=== PATIENT | male | born 2000 | race Caucasian/White ===

== ENCOUNTER 2021-02-11 13:22 | Day surgery (SDC) | payer SELFPAY ==
[~2021-02-11] VITALS: Ht 185 cm; Wt 65.7 kg
[2021-02-11] VITALS (9 sets, daily range): BP systolic 117–132; BP diastolic 54–77
[2021-02-11 13:44] LABS: CLARITY,URINE CLEAR; COLOR,URINE YELLOW; PH,URINE 6.5 (5-9)
[2021-02-11 13:45] LABS: BACTERIA,URINE NEGATIVE /HPF; BILIRUBIN,URINE NEGATIVE (NEGATIVE); GLUCOSE, URINE (UA) NEGATIVE (NEGATIVE); KETONES,URINE TRACE (NEGATIVE); LEUKOCYTE ESTERASE ,URINE NEGATIVE (NEGATIVE); NITRITE,URINE NEGATIVE (NEGATIVE); PROTEIN,URINE NEGATIVE (NEGATIVE); WBC,URINE 0-2 /HPF
--- NOTE | 2021-02-11 13:50 | ED Abdominal Pain ---
General Chief Complaint: Abdominal/GI Problems Stated Complaint: LRQ PAIN; NAUSEA; DIARRHEA; FEVER Source of Information: Patient Exam Limitations: No Limitations History of Present Illness Date Seen by Provider: Feb 11, 2021 Time Seen by Provider: 13:35 Initial Comments Patient presents ER by private conveyance from home with his significant other and chief complaint that around 9:00 this morning he started having some severe pain radiating from his mid umbilicus to his right lower quadrant abdomen. He did have 1 episode of diarrhea this morning that was nonbloody. No fevers or chills. He said some nausea and gets a little dizzy when he stands up but no vomiting. No history of abdominal surgeries or trauma. No one else around him is sick. He has had no cough shortness of air or fever. He did not take anything for the symptoms. No significant family medical history. He denies dysuria or discharge. Allergies and Home Medications Allergies Coded Allergies: No Known Drug Allergies (Unverified , 02/11/21) Patient Home Medication List Home Medication List Reviewed: Yes Review of Systems Review of Systems Constitutional: No chills, No diaphoresis; dizziness; No fever, No malaise EENTM: No Blurred Vision, No Double Vision Respiratory: Denies Cough, Denies Shortness of Air Cardiovascular: Denies Chest Pain, Denies Lightheadedness Gastrointestinal: See HPI, Abdominal Pain; Denies Constipated, Denies Diarrhea; Nausea, Poor Fluid Intake; Denies Vomiting Genitourinary: Denies Burning, Denies Discharge Musculoskeletal: No back pain, No joint pain All Other Systems Reviewed Negative Unless Noted: Yes Past Hhzsboy-Sznpjc-Rwofki Hx Patient Social History Alcohol Use: Denies Use Smoking Status: Current Everyday Smoker Type Used: Electronic/Vapor 2nd Hand Smoke Exposure: No Recent Hopitalizations: No Seasonal Allergies Seasonal Allergies: No Past Medical History Surgeries: No Respiratory: No Cardiac: No Neurological: No Genitourinary: No Gastrointestinal: No Musculoskeletal: No Endocrine: No HEENT: No Cancer: No Psychosocial: No Integumentary: No Blood Disorders: No Physical Exam Vital Signs Vital Signs - First Documented 02/11/21 13:53 Temp 36.9 Pulse 64 Resp 18 B/P (MAP) 122/74 (90) Pulse Ox 100 Capillary Refill : Height/Weight/BMI Height: '" Weight: lbs. oz. kg; BMI Method: General Appearance: WD/WN, mild distress HEENT: PERRL/EOMI, pharynx normal Neck: full range of motion, normal inspection Respiratory: lungs clear, normal breath sounds, no respiratory distress, no accessory muscle use Cardiovascular: normal peripheral pulses, regular rate, rhythm Peripheral Pulses: 2+ Radial Pulses (R), 2+ Radial Pulses (L) Gastrointestinal: normal bowel sounds, guarding (Right lower quadrant); No rebound; tenderness (Right lower quadrant tenderness with Rovsing sign and psoas sign negative for heeltap tenderness.) Extremities: normal range of motion, normal capillary refill Neurologic/Psychiatric: alert, normal mood/affect, oriented x 3 Progress/Results/Core Measures Results/Orders Lab Results Laboratory Tests Test 02/11/21 13:36 02/11/21 13:59 Range/Units Urine Color YELLOW Urine Clarity CLEAR Urine pH 6.5 5-9 Urine Specific Ivor 1.020 1.016-1.022 Urine Protein NEGATIVE NEGATIVE Urine Glucose (UA) NEGATIVE NEGATIVE Urine Ketones TRACE H NEGATIVE Urine Nitrite NEGATIVE NEGATIVE Urine Bilirubin NEGATIVE NEGATIVE Urine Urobilinogen 0.2 < = 1.0 MG/DL Urine Leukocyte Esterase NEGATIVE NEGATIVE Urine RBC (Auto) NEGATIVE NEGATIVE Urine RBC NONE /HPF Urine WBC 0-2 /HPF Urine Squamous Epithelial Cells NONE /HPF Urine Crystals NONE /LPF Urine Bacteria NEGATIVE /HPF Urine Casts NONE /LPF Urine White Blood Cell Casts /LPF Urine Mucus NEGATIVE /LPF Urine Culture Indicated NO White Blood Count 15.6 H 4.3-11.0 10^3/uL Red Blood Count 5.38 4.35-5.85 10^6/uL Hemoglobin 16.6 13.3-17.7 G/DL Hematocrit 47 40-54 % Mean Corpuscular Volume 87 80-99 FL Mean Corpuscular Hemoglobin 31 25-34 PG Mean Corpuscular Hemoglobin Concent 36 32-36 G/DL Red Cell Distribution Width 11.4 10.0-14.5 % Platelet Count 278 130-400 10^3/uL Mean Platelet Volume 10.6 H 7.4-10.4 FL Immature Granulocyte % (Auto) 0 % Neutrophils (%) (Auto) 82 H 42-75 % Lymphocytes (%) (Auto) 10 L 12-44 % Monocytes (%) (Auto) 7 0-12 % Eosinophils (%) (Auto) 0 0-10 % Basophils (%) (Auto) 0 0-10 % Neutrophils # (Auto) 12.8 H 1.8-7.8 X 10^3 Lymphocytes # (Auto) 1.5 1.0-4.0 X 10^3 Monocytes # (Auto) 1.1 H 0.0-1.0 X 10^3 Eosinophils # (Auto) 0.1 0.0-0.3 10^3/uL Basophils # (Auto) 0.0 0.0-0.1 10^3/uL Immature Granulocyte # (Auto) 0.1 0.0-0.1 10^3/uL Neutrophils % (Manual) 81 % Lymphocytes % (Manual) 10 % Monocytes % (Manual) 4 % Eosinophils % (Manual) 2 % Basophils % (Manual) 0 % Band Neutrophils 3 % Sodium Level 140 135-145 MMOL/L Potassium Level 3.6 3.6-5.0 MMOL/L Chloride Level 103 98-107 MMOL/L Carbon Dioxide Level 23 21-32 MMOL/L Anion Gap 14 5-14 MMOL/L Blood Urea Nitrogen 16 7-18 MG/DL Creatinine 1.12 0.60-1.30 MG/DL Estimat Glomerular Filtration Rate > 60 BUN/Creatinine Ratio 14 Glucose Level 102 70-105 MG/DL Calcium Level 9.9 8.5-10.1 MG/DL Corrected Calcium 8.5-10.1 MG/DL Total Bilirubin 0.6 0.1-1.0 MG/DL Aspartate Amino Transf (AST/SGOT) 22 5-34 U/L Alanine Aminotransferase (ALT/SGPT) 14 0-55 U/L Alkaline Phosphatase 70 40-136 U/L C-Reactive Protein 0.10 <0.50 MG/DL Total Protein 8.2 6.4-8.2 GM/DL Albumin 5.2 H 3.2-4.5 GM/DL My Orders Orders - KRZYSZTOF LEON Ua Culture If Indicated (02/11/21 13:25) Ct Abd/Pelv W (Appendicitis) (02/11/21 13:46) Ed Iv/Invasive Line Start (02/11/21 13:46) Lactated Ringers (Lr 1000 Ml Iv Solution (02/11/21 14:00) Cbc With Automated Diff (02/11/21 13:46) Comprehensive Metabolic Panel (02/11/21 13:46) Crp Fs (02/11/21 13:46) Fentanyl Inj (Sublimaze Injection) (02/11/21 14:00) Iohexol Injection (Omnipaque 350 Mg/Ml 1 (02/11/21 14:00) Received Contrast (Hold Metformin- Contr (02/11/21 14:00) Sodium Chloride Flush (Catheter Flush Sy (02/11/21 14:00) Ns (Ivpb) (Sodium Chloride 0.9% Ivpb Bag (02/11/21 14:00) Manual Differential (02/11/21 13:59) Piperacillin Sodium/Tazobactam (Zosyn Vi (02/11/21 15:00) Medications Given in ED Current Medications Medications Dose Ordered Sig/Teddy Route Start Time Stop Time Status Last Admin Dose Admin Fentanyl Citrate 50 mcg ONCE ONCE IVP 02/11/21 14:00 02/11/21 14:01 DC 02/11/21 14:13 50 MCG Iohexol 100 ml ONCE ONCE IV 02/11/21 14:00 02/11/21 14:01 DC 02/11/21 14:15 100 ML Lactated Ringer's 1,000 ml @ 0 mls/hr Q0M ONCE IV 02/11/21 14:00 02/11/21 14:01 DC 02/11/21 14:13 1,000 MLS/HR Sodium Chloride 10 ml NEEDED PRN IV 02/11/21 14:00 02/11/21 14:15 10 ML Sodium Chloride 100 ml ONCE ONCE IV 02/11/21 14:00 02/11/21 14:01 DC 02/11/21 14:15 100 ML Vital Signs/I&O 02/11/21 13:53 Temp 36.9 Pulse 64 Resp 18 B/P (MAP) 122/74 (90) Pulse Ox 100 Progress Progress Note #1: Time: 13:50 Progress Note Concerning coalescence of symptoms around his right lower quadrant abdomen with nausea but no fever. Does not appear to be related to a hernia by history or exam. Plan to get a CT of his abdomen pelvis and give him a liter of lactated Ringer's, 50 mcg of fentanyl and check lab. Progress Note #2: Time: 15:03 Progress Note Patient is significantly more comfortable than when he arrived. He is still has a septic vital signs and has had no material deterioration during his stay. We have discussed and he has good transportation would like to go POV. We are going to support him with 50 mcg of fentanyl, 4-1/2 g of Zosyn IV. He has finished his fluids. He reiterated that he has not had anything but some strawberries to eat around 9:00 this morning. Diagnostic Imaging Diagonstic Imaging: CT (With IV contrast) Plain Films/CT/US/NM/MRI: abdomen, pelvis Comments [facility]. [place], [place] NAME: IRINA CELAYA [facility] REC#: [id number] PT STATUS: REG ER : 2000 PHYSICIAN: KRZYSZTOF LEON MD ADMIT DATE: 02/11/21/ER FS Draft Date of Exam:02/11/21 CT ABD/PELV W (APPENDICITIS) PROCEDURE: CT abdomen and pelvis with contrast, rule out appendicitis. TECHNIQUE: Multiple contiguous axial images were obtained through the abdomen and pelvis after the administration of intravenous contrast. All CT scans use one or more of the following dose optimizing techniques: automated exposure control, MA and/or KvP adjustment based on patient size and exam type or iterative reconstruction. INDICATION: Epigastric pain. COMPARISON: There are no prior studies available for comparison. FINDINGS: There is clinical concern regarding appendicitis. The appendix was visualized and the appendix does seem to be at the upper limits of normal in size measuring 8.2 mm (normal 8 mm or less). There is also slight distortion of the periappendiceal fat and I am concerned that these findings may be related to early appendicitis. A surgical consult would be recommended. There is no acute abnormality of the abdomen or pelvis noted otherwise. There is a fair amount of fluid within the small bowel. This finding is nonspecific but could be related to a mild ileus. There is also small amount of free fluid in the pelvis. The urinary bladder and prostate gland are grossly unremarkable. The spleen is prominent measuring 12.4 cm in length. The liver, pancreas, adrenals, kidneys, gallbladder, aorta and inferior vena cava and portal vein are unremarkable for an acute abnormality. The stomach is partially filled with fluid and consequently difficult to assess. The lung bases are clear. The bone windows are unremarkable for fracture or for destructive lesion. IMPRESSION: 1. The findings are worrisome for early appendicitis. A surgical consult would be recommended. 2. The fluid in the small bowel and a small amount of free fluid along the pelvis is nonspecific. This could be related to a mild ileus perhaps secondary to enteritis or possibly related to the suspected appendicitis. 3. These results were discussed with Dr. Krzysztof Leon at the time of this dictation. CRITICAL FINDING. Dictated on workstation # [id number] Dict: 02/11/21 1429 Trans: 02/11/21 1441 [facility] [id number] Interpreted by: GREER MIRELES MD Electronically signed by: Reviewed: Reviewed by Me Departure Impression Primary Impression: Appendicitis Qualified Codes: K35.30 - Acute appendicitis with localized peritonitis, without perforation or gangrene Disposition: HOME, SELF-CARE Condition: Stable Transfer Transfer Reason: Exceeds level of care (No local OR) Time Spoke to Accepting Phy: 14:55 Transfer Progress Notes 1445: Discussed the case with Dr. Galvez, general surgery and he would like the patient transferred ER to ER to the [facility] in [place] so he can take him straight to the OR. They are 6 hours n.p.o. at this time. 1455: Discussed the case with Renny Calderón, [facility] and he agrees to accept the patient to the emergency room with plan to turn over to Dr. Galvez to take to the OR. Transfer Facility: [facility] Method of Transfer: Private Vehicle (christine S.O.) Departure-Patient Inst. Referrals: NO,LOCAL PHYSICIAN (PCP/Family) Primary Care Physician KRZYSZTOF LEON Feb 11, 2021 13:50
[2021-02-11] MEDS ORDERED: fentaNYL INJ 100 MCG/2 ML AMP IVP ONE ×2 (14:00→15:15)
[2021-02-11] MEDS ORDERED: LACTATED RINGERS 1,000 ML IV ONE (14:00)
[2021-02-11] MEDS ORDERED: NS 100 ML (IVPB) BAG IV ONE (14:00)
[2021-02-11] MEDS ORDERED: HOLD METFORMIN - RECEIVED CONTRAST 20 ML VIAL IV SCH (14:00)
[2021-02-11] MEDS ORDERED: CATHETER FLUSH 10 ML SYR IV PRN (14:00)
[2021-02-11] MEDS ORDERED: IOHEXOL 350 MG/ML 100 ML (OMNIPAQUE 350) VIAL IV ONE (14:00)
[2021-02-11 14:18] LABS: HEMATOCRIT 47 % (40-54); HEMOGLOBIN 16.6 G/DL (13.3-17.7); MEAN CORPUSCULAR HEMOGLOBIN 31 PG (25-34); MEAN CORPUSCULAR VOLUME 87 FL (80-99); WHITE BLOOD COUNT 15.6 10^3/uL (4.3-11.0)
[2021-02-11 14:19] LABS: BASOPHILS % (AUTO) 0 % (0-10); EOSINOPHILS # (AUTO) 0.1 10^3/uL (0.0-0.3); EOSINOPHILS % (AUTO) 0 % (0-10); LYMPHOCYTES # (AUTO) 1.5 X 10^3 (1.0-4.0); LYMPHOCYTES % (AUTO) 10 % (12-44); MEAN CORPUSCULAR HGB CONC 36 G/DL (32-36); MEAN PLATELET VOLUME 10.6 FL (7.4-10.4); MONOCYTES # (AUTO) 1.1 X 10^3 (0.0-1.0); MONOCYTES % (AUTO) 7 % (0-12); NEUTROPHILS # (AUTO) 12.8 X 10^3 (1.8-7.8); NEUTROPHILS % (AUTO) 82 % (42-75); PLATELET COUNT 278 10^3/uL (130-400)
[2021-02-11 14:36] LABS: ALANINE AMINOTRANSFERASE 14 U/L (0-55); ALKALINE PHOSPHATASE 70 U/L (40-136); BILIRUBIN,TOTAL 0.6 MG/DL (0.1-1.0); BUN/CREATININE RATIO 14; CALCIUM 9.9 MG/DL (8.5-10.1); CARBON DIOXIDE 23 MMOL/L (21-32); CHLORIDE 103 MMOL/L (98-107); CREATININE SERUM 1.12 MG/DL (0.60-1.30); GFR ESTIMATED > 60; GLUCOSE 102 MG/DL (70-105); POTASSIUM 3.6 MMOL/L (3.6-5.0); SODIUM 140 MMOL/L (135-145)
[2021-02-11 14:37] LABS: ALBUMIN 5.2 GM/DL (3.2-4.5); TOTAL PROTEIN 8.2 GM/DL (6.4-8.2)
--- NOTE | 2021-02-11 14:41 | Diagnostic Imaging Report ---
PROCEDURE: CT abdomen and pelvis with contrast, rule out appendicitis. TECHNIQUE: Multiple contiguous axial images were obtained through the abdomen and pelvis after the administration of intravenous contrast. All CT scans use one or more of the following dose optimizing techniques: automated exposure control, MA and/or KvP adjustment based on patient size and exam type or iterative reconstruction. INDICATION: Epigastric pain. COMPARISON: There are no prior studies available for comparison. FINDINGS: There is clinical concern regarding appendicitis. The appendix was visualized and the appendix does seem to be at the upper limits of normal in size measuring 8.2 mm (normal 8 mm or less). There is also slight distortion of the periappendiceal fat and I am concerned that these findings may be related to early appendicitis. A surgical consult would be recommended. There is no acute abnormality of the abdomen or pelvis noted otherwise. There is a fair amount of fluid within the small bowel. This finding is nonspecific but could be related to a mild ileus. There is also small amount of free fluid in the pelvis. The urinary bladder and prostate gland are grossly unremarkable. The spleen is prominent measuring 12.4 cm in length. The liver, pancreas, adrenals, kidneys, gallbladder, aorta and inferior vena cava and portal vein are unremarkable for an acute abnormality. The stomach is partially filled with fluid and consequently difficult to assess. The lung bases are clear. The bone windows are unremarkable for fracture or for destructive lesion. IMPRESSION: 1. The findings are worrisome for early appendicitis. A surgical consult would be recommended. 2. The fluid in the small bowel and a small amount of free fluid along the pelvis is nonspecific. This could be related to a mild ileus perhaps secondary to enteritis or possibly related to the suspected appendicitis. 3. These results were discussed with Dr. Krzysztof Leon at the time of this dictation. CRITICAL FINDING. Dictated by: Dictated on workstation # [id number]
[2021-02-11 14:50] LABS: BAND NEUTROPHILS 3 %; BASOPHILS % (MANUAL) 0 %; EOSINOPHILS % (MANUAL) 2 %; LYMPHOCYTES % (MANUAL) 10 %; MONOCYTES % (MANUAL) 4 %; NEUTROPHILS % (MANUAL) 81 %
[2021-02-11] MEDS ORDERED: PIPERACILLIN SODIUM/TAZOBACTAM 4.5 GM in NS (IVPB) 100 ML IV ONE (15:00)
[2021-02-11] MEDS ORDERED: LIDOCAINE/EPI 1%-1:100,000 (XYLOCAINE) 20ML ONE (15:43)
[2021-02-11] MEDS ORDERED: MIDAZOLAM 2 MG/2 ML (VERSED) VIAL ONE (16:19)
[2021-02-11] MEDS ORDERED: ONDANSETRON 4 MG/2 ML (SDV) Z0FRAN ONE ×2 (16:19→16:44)
[2021-02-11] MEDS ORDERED: ROCURONIUM 10 MG/ML 5 ML SYRINGE IV ONE ×2 (16:19→17:45)
[2021-02-11] MEDS ORDERED: proPOfol 200 MG/20 ML (DIPRIVAN) VIAL IV ONE (16:19)
[2021-02-11] MEDS ORDERED: SUCCINYLCHOLINE INJ 100 MG/5 ML SYR/VIAL ONE (16:19)
[2021-02-11] MEDS ORDERED: LIDOCAINE PF 2% 5 ML (XYLOCAINE) VIAL ONE (16:19)
[2021-02-11] MEDS ORDERED: fentaNYL INJ 100 MCG/2 ML AMP ONE (16:20)
--- NOTE | 2021-02-11 16:35 | History & Physical-Surgical ---
TONI CHASE MED STUDENT 02/11/21 1635: History of Present Illness History of Present Illness Reason for visit/HPI Was coming in from feeding horses this morning and started off as a general cramping sensation throughout his abdomen, but progressed into a sharp pain in his lower right quadrant and would have pain that would go through to his back. Pt went to the [facility] where CT imaging confirmed acute appendicitis with elevated white blood cell count, and was transferred to [facility] by private vehicle from his girlfriend and her mom. He states that the pain is worse with movement and only got better with pain medication. Pt denies any medical conditions, has had no surgeries, takes no medication daily, but vapes regularly, occasional use of marijuana and alcohol but denies cocaine or meth use. Rates his pain as 4/10 but states that he was at an 8/10 earlier. Has had nausea without vomiting and symptomatic peritonitis. Date of Admission 02/11/2021 Date Seen by a Provider: Feb 11, 2021 Time Seen by a Provider: 16:27 I consulted on this patient on 02/11/21 16:27 Attending Physician Admitting Physician Dr Galvez Consult Allergies and Home Medications Allergies Coded Allergies: No Known Drug Allergies (Unverified , 02/11/21) Home Medications Docusate Sodium 100 Mg Capsule, 100 MG PO BID Prescribed by: GURINDER GALVEZ on 02/11/21 175 Hydrocodone/Acetaminophen 1 Each Tablet, 1 EACH PO Q4H PRN for PAIN-MODERATE (5- 7) Prescribed by: GURINDER GALVEZ on 02/11/21 175 Past Bjldjom-Ryqrvd-Hxhxxz Hx Patient Social History Smoking Status: Current Everyday Smoker Type Used: Electronic/Vapor 2nd Hand Smoke Exposure: No Recent Hopitalizations: No Seasonal Allergies Seasonal Allergies: No Surgeries History of Surgeries: No Respiratory History of Respiratory Disorde: No Cardiovascular History of Cardiac Disorders: No Neurological History of Neurological Disord: No Genitourinary History of Genitourinary Disor: No Gastrointestinal History of Gastrointestinal Di: No Musculoskeletal History of Musculoskeletal Dis: No Endocrine History of Endocrine Disorders: No HEENT History of HEENT Disorders: No Cancer History of Cancer: No Psychosocial History of Psychiatric Problem: No Integumentary History of Skin or Integumenta: No Blood Transfusions History of Blood Disorders: No Review of Systems Constitutional: No chills, No fever EENTM: No blurred vision, No double vision Respiratory: No cough, No dyspnea on exertion Cardiovascular: No chest pain, No palpitations Gastrointestinal: No RUQ, No LUQ; RLQ; No LLQ; abdominal pain, nausea; No vomiting Genitourinary: No decreased output, No discharge Musculoskeletal: back pain; No joint pain Skin: No change in color, No change in hair/nails Psychiatric/Neurological: Denies Anxiety, Denies Depressed, Denies Emotional Problems All Other Systems Reviewed Negative Unless Noted: Yes (Negative excepted noted.) Physical Exam Vital Signs Vital Signs - First Documented 02/11/21 02/11/21 13:53 15:33 Temp 36.9 Pulse 64 Resp 18 B/P (MAP) 122/74 (90) Pulse Ox 100 O2 Delivery Room Air Capillary Refill : Less Than 3 Seconds Height, Weight, BMI Height: '" Weight: lbs. oz. kg; 19.00 BMI Method: Eyes: Bilateral Eye Normal Inspection, Bilateral Eye PERRL, Bilateral Eye EOMI HEENT: PERRL/EOMI, TMs Normal, Normal ENT Inspection, Pharynx Normal Neck: Full Range of Motion, Normal Inspection, Non Tender, Supple Respiratory: Chest Non Tender, Lungs Clear, Normal Breath Sounds, No Accessory Muscle Use, No Respiratory Distress Cardiovascular: Regular Rate, Rhythm, No Edema, No Gallop, No JVD, No Murmur, Normal Peripheral Pulses Gastrointestinal: Normal Bowel Sounds, No Organomegaly, No Pulsatile Mass; No Non Tender; Soft, Tenderness (right lower quadrant) Rectal: Deferred Back: Normal Inspection, No CVA Tenderness, No Vertebral Tenderness Extremity: Normal Capillary Refill, Normal Inspection, Normal Range of Motion, Non Tender, No Calf Tenderness Neurologic/Psychiatric: Alert, Oriented x3, No Motor/Sensory Deficits, Normal Mood/Affect Skin: Normal Color, Warm/Dry Lymphatic: No Adenopathy Data Review Labs Laboratory Tests 02/11/21 13:36: Urine Color YELLOW, Urine Clarity CLEAR, Urine pH 6.5, Urine Specific Ruffin 1.020, Urine Protein NEGATIVE, Urine Glucose (UA) NEGATIVE, Urine Ketones TRACEH , Urine Nitrite NEGATIVE, Urine Bilirubin NEGATIVE, Urine Urobilinogen 0.2, Urine Leukocyte Esterase NEGATIVE, Urine RBC (Auto) NEGATIVE, Urine RBC NONE, Urine WBC 0-2, Urine Squamous Epithelial Cells NONE, Urine Crystals NONE, Urine Bacteria NEGATIVE, Urine Casts NONE, Urine White Blood Cell Casts , Urine Mucus NEGATIVE, Urine Culture Indicated NO 02/11/21 13:59: White Blood Count 15.6H, Red Blood Count 5.38, Hemoglobin 16.6, Hematocrit 47, Mean Corpuscular Volume 87, Mean Corpuscular Hemoglobin 31, Mean Corpuscular Hemoglobin Concent 36, Red Cell Distribution Width 11.4, Platelet Count 278, Mean Platelet Volume 10.6H, Immature Granulocyte % (Auto) 0, Neutrophils (%) (Auto) 82H, Lymphocytes (%) (Auto) 10L, Monocytes (%) (Auto) 7, Eosinophils (%) (Auto) 0, Basophils (%) (Auto) 0, Neutrophils # (Auto) 12.8H, Lymphocytes # (Auto) 1.5, Monocytes # (Auto) 1.1H, Eosinophils # (Auto) 0.1, Basophils # (Auto) 0.0, Immature Granulocyte # (Auto) 0.1, Neutrophils % (Manual) 81, Lymphocytes % (Manual) 10, Monocytes % (Manual) 4, Eosinophils % (Manual) 2, Basophils % (Manual) 0, Band Neutrophils 3, Sodium Level 140, Potassium Level 3.6, Chloride Level 103, Carbon Dioxide Level 23, Anion Gap 14, Blood Urea Nitrogen 16, Creatinine 1.12, Estimat Glomerular Filtration Rate > 60, BUN/Crea tinine Ratio 14, Glucose Level 102, Calcium Level 9.9, Corrected Calcium , Total Bilirubin 0.6, Aspartate Amino Transf (AST/SGOT) 22, Alanine Aminotransferase (ALT/SGPT) 14, Alkaline Phosphatase 70, C-Reactive Protein 0.10, Total Protein 8.2, Albumin 5.2H Assessment/Plan Assessment/Plan Admission Diagonsis Acute appendicits right lower quadrant abdominal pain leukocytosis Admission Status: Other (Same Day Surgery) Assessment/Plan ASSESSMENT Acute appendicitis right lower quadrant abdominal pain leukocytosis PLAN discuss risk and benefit laparoscopic appendectomy and all indicated procedures GURINDER GALVEZ DO 02/11/21 1806: History of Present Illness History of Present Illness Reason for visit/HPI Seen and evaluated in ED CC RLQ abdominal pain Right lower quadrant abdominal pain. Started this morning. Cramping pain, moves to back. Moving makes worse. Pain medication makes better. Nausea and some back pain. Ct scan reviewed and consistent with acute appendicitis. Allergies and Home Medications Allergies Coded Allergies: No Known Drug Allergies (Unverified , 02/11/21) Home Medications Docusate Sodium 100 Mg Capsule, 100 MG PO BID Prescribed by: GURINDER GALVEZ on 02/11/211757 Hydrocodone/Acetaminophen 1 Each Tablet, 1 EACH PO Q4H PRN for PAIN-MODERATE (5- 7) Prescribed by: GURINDER GALVEZ on 02/11/211757 Patient Home Medication List Home Medication List Reviewed: Yes Past Nmcprnc-Jyhyvb-Dzokqj Hx Reviewed Nursing Assessment Reviewed/Agree w Nursing PMH: Yes Family Medical History Significant Family History: No Pertinent Family Hx Review of Systems Constitutional: No chills, No fever EENTM: No blurred vision, No double vision Respiratory: No cough, No dyspnea on exertion Cardiovascular: No chest pain, No palpitations Gastrointestinal: RLQ, abdominal pain (RLQ), nausea; No vomiting Genitourinary: No decreased output, No discharge Musculoskeletal: back pain; No joint pain Skin: No change in color, No change in hair/nails Psychiatric/Neurological: Denies Anxiety, Denies Depressed, Denies Emotional Problems All Other Systems Reviewed Negative Unless Noted: Yes (Negative excepted noted.) Physical Exam General Appearance: No Apparent Distress, WD/WN Eyes: Bilateral Eye Normal Inspection, Bilateral Eye PERRL, Bilateral Eye EOMI HEENT: PERRL/EOMI, Normal ENT Inspection, Pharynx Normal Neck: Full Range of Motion, Normal Inspection, Non Tender, Supple Respiratory: Chest Non Tender, No Accessory Muscle Use, No Respiratory Distress Cardiovascular: Regular Rate, Rhythm, No JVD Gastrointestinal: No Organomegaly, Soft, Tenderness (right lower quadrant) Rectal: Deferred Back: Normal Inspection, No CVA Tenderness Extremity: Normal Capillary Refill, Non Tender, No Calf Tenderness Neurologic/Psychiatric: Alert, Oriented x3, No Motor/Sensory Deficits, Normal Mood/Affect Skin: Normal Color, Warm/Dry Lymphatic: No Adenopathy Assessment/Plan Assessment/Plan Admission Diagonsis Acute appendicits right lower quadrant abdominal pain leukocytosis Admission Status: Other (Same Day Surgery) Assessment/Plan Acute appendicits right lower quadrant abdominal pain leukocytosis discussed risks and benefits of laparoscopic appendectomy he undertstands and wishes to proceed to or NPO Consent Supervisory-Addendum Brief Verification & Attestation Participated in pt care: history, MDM, physical Personally performed: exam, history, MDM, supervision of care Care discussed with: Medical Student Procedures: n/a Results interpretation: Verified all documentation Verification and Attestation of Medical Student E/M Service A medical student performed and documented this service in my presence. I reviewed and verified all information documented by the medical student and made modifications to such information, when appropriate. I personally performed the physical exam and medical decision making. Gurinder Galvez, Feb 11, 2021,16:46 TONI CHASE MED STUDENT Feb 11, 2021 16:35 GURINDER GALVEZ DO Feb 11, 2021 18:06
[2021-02-11] MEDS ORDERED: morphine INJ 10 MG/ML 1ML (SYR OR VIAL) ONE (16:44)
[2021-02-11] MEDS ORDERED: HYDROmorphone 2 MG/ML VIAL (DILAUDID) ONE (16:44)
[2021-02-11] MEDS ORDERED: ceFAZolin INJECTION 1,000 MG ONE (16:52)
[2021-02-11] MEDS: LACTATED RINGERS 1,000 ML IV PRN ×2 (16:57→17:39)
[2021-02-11] MEDS ORDERED: ceFAZolin INJECTION 1,000 MG VIAL IV ONE (17:15)
[2021-02-11] MEDS ORDERED: NEOSTIGMINE 3 MG/3 ML VIAL ONE (17:40)
[2021-02-11] MEDS ORDERED: GLYCOPYRROLATE 0.2 MG/ML (ROBINUL) 2 ML VIAL ONE (17:40)
[2021-02-11] MEDS ORDERED: SEVOFLURANE (ULTANE) 15 ML INHAL SOLN ONE (17:44)
[2021-02-11] MEDS ORDERED: DOCU-143 PO (17:58)
[2021-02-11] MEDS ORDERED: ACHD5005 PO (17:58)
--- NOTE | 2021-02-11 17:58 | Discharge Inst-Simple/Standard ---
Discharge Inst-Standard Discharge Medications New, Converted or Re-Newed RX: RX on Chart Patient Instructions/Follow Up Plan of Care/Instructions/FU: 2-3 weeks Lenny Activity as Tolerated: No Discharge Diet: Regular Diet Other Inst to Patient Follow up Appt: Make appointment for 2-3 weeks. Instructions: No lifting greater than 10 pounds. No strenuous activity. May shower in 24 hours, no tub bath or soaking. Use incentive spirometer at home as directed. No Smoking Skin/Wound Care: You have special glue over your incision that will fall off on it's own. Symptoms to Report: Appetite Changes, Extremity Discoloration, Numbness/Tingling, Swelling Increased, Bleeding Excessive, Eyesight Changes, Pain Increased, Urine Color Change, Constipation(Persistent), Fever over 101 degree F, Pain/Pressure in chest, Urinating Difficulty, Cough Up/Vomit Blood, Heart Beat Irreg/Pounding, Pain/Pressure in jaw, Vaginal Bleeding Increase, Cramps in feet or legs, Lightheadedness, Pain/Pressure in shoulder, Diarrhea(Persistent), Memory Changes Suddenly, Questions/Concerns, Weight gain consecutive days, Dizziness/Fainting, Nausea/Vomiting, Shortness of Breath, Weight gain over 2 pounds If questions or concerns contact your physician Or seek help at emergency department. FOREST RODRIGUEZ DO Feb 11, 2021 17:58
--- NOTE | 2021-02-11 18:00 | Progress Note-Post Operative ---
Post-Operative Progess Note Surgeon (s)/Auto Crane Driver (s) Surgeon FOERST RODRIGUEZ DO Auto Crane Driver: NA Pre-Operative Diagnosis acute appendicitis Post-Operative Diagnosis acute appendicitis Procedure & Operative Findings Date of Procedure 02/11/21 Procedure Performed/Findings PROCEDURE: Laparoscopic appendectomy. COMPLICATIONS: None. INDICATIONS: The patient is a 20 year old male who has been having right lower quadrant abdominal pain. Patient's exam consistent with appendicitis. I discussed risk and benefits of laparoscopic appendectomy and all indicated procedures with the possibility being a normal appendix. The patient understands the risks and benefits and wishes to proceed. Consent was signed on the chart. DESCRIPTION OF PROCEDURE: The patient was taken to the operating suite, prepped and draped in a sterile fashion. Timeout was performed. Local anesthetic was infiltrated just above the umbilicus and 11-blade scalpel was used to make a skin incision. Cautery was used to dissect down to the fascia and scored. Kochers were used to grasp and elevate it and the abdomen was then entered. A 0 Vicryl was placed in a mbihig-re-venap fashion for closure at the end of the case. The balloon trocar was inserted into the abdomen and pneumoperitoneum was achieved. Under direct visualization of the laparoscope, a 5 mm trocar was placed in the suprapubic region and a 5 mm trocar was placed in the left lower quadrant. Appendix was located, Inflamed appendix. The base of the appendix was dissected around. Once at the base an Endo-FRANKIE 2.5 stapler was then fired across the base of the appendix. The mesoappendix was then divided. It was then placed in an Endobag and removed through the 12 mm trocar site. The abdomen was then irrigated and suctioned. No other pathology noted. The abdomen was then desufflated and the trocars were removed. The 0 Vicryl placed at the beginning of the case was then tied closing the 12 mm fascial defect. The skin was then closed using 4-0 Monocryl in a subcuticular fashion. The abdomen was then washed and dried and Skin Affix was placed over the incisions. The patient tolerated the procedure well without any complications and was taken to the recovery room in stable condition. Anesthesia Type general Estimated Blood Loss Estimated blood loss (mL): minimal Specimens/Packing Specimens Removed appendix FOREST RODRIGUEZ DO Feb 11, 2021 18:00
[2021-02-11] MEDS ORDERED: MEPERIDINE (DEMEROL) INJ 50 MG/ML ONE (18:03)
[2021-02-11] MEDS ORDERED: morphine INJ 10 MG/ML 1ML (SYR OR VIAL) IVP ONE (18:15)
[2021-02-11] MEDS ORDERED: ONDANSETRON 4 MG/2 ML (SDV) Z0FRAN IVP PRN (18:15)
[2021-02-11] MEDS ORDERED: HYDROmorphone 2 MG/ML VIAL (DILAUDID) IV ONE (18:15)
[2021-02-11] MEDS ORDERED: MEPERIDINE (DEMEROL) INJ 50 MG/ML IVP ONE (18:15)
[2021-02-11] MEDS ORDERED: PROMETHAZINE INJ 25 MG/ML (PHENERGAN) AMP IVP ONE (18:15)
--- NOTE | 2021-02-11 18:53 | Anesthesia-General Post-Op ---
General Patient Condition Mental Status/LOC: Same as Preop Cardiovascular: Satisfactory Nausea/Vomiting: Absent Respiratory: Satisfactory Pain: Controlled Complications: Absent Post Op Complications Complications None Follow Up Care/Instructions Patient Instructions None needed. Anesthesia/Patient Condition Patient Condition Patient is doing well, no complaints, stable vital signs, no apparent adverse anesthesia problems. No complications reported per nursing. SILVIO BELLAMY CRNA Feb 11, 2021 18:52
[2021-02-11] MEDS ORDERED: HYDROcodone /IBUPROFEN (VICOPROFEN) 7.5 MG/ 200 MG TAB PO PRN (19:30)
[2021-02-11] MEDS ORDERED: HYDROcodone /IBUPROFEN (VICOPROFEN) 7.5 MG/ 200 MG TAB PO ONE (19:39)
[2021-02-11] MEDS ORDERED: HYDROcodone/APAP 5 MG/325 MG (LORTAB) TAB ONE (19:54)
[2021-02-11] MEDS ORDERED: HYDROcodone/APAP 5 MG/325 MG (LORTAB) TAB PO PRN (20:00)
== END 2021-02-11 20:40 | disposition home or self-care (01) ==
LOC: ER FS 13:27 → ER 16:38 → SDC 17:00
PROVIDERS: ATTEND Surgery
DX: K35.80 Unspecified acute appendicitis (principal); D72.829 Elevated white blood cell count, unspecified; F17.290 Nicotine dependence, other tobacco product, uncomplicated; Z79.891 Long term (current) use of opiate analgesic; Z79.899 Other long term (current) drug therapy
CPT/HCPCS: 36415; 74177; 80053; 81000; 85007; 85027; 86141; 88304; 96374; 96375; 96376